=== PATIENT | female | born 1935 | race Caucasian/White ===

== ENCOUNTER → 2020-07-25 | Outpatient (CLI) | payer MEDICARE ==
--- NOTE | 2020-07-25 15:28 | RADIOLOGY REPORT (SQ) ---
EXAM DESCRIPTION: BARIUM SWALLOW ESOPHAGUS IMAGES COMPLETED DATE/TIME: 07/25/2020 10:44 am REASON FOR STUDY: R05 COUGH, CHOKING SENSATION R09.89 OTH SYMPTOMS AND SIGNS INVOLVING THE CIRC AND RESP SY COMPARISON: None. TECHNIQUE: Under fluoroscopic guidance, patient ingested effervescent granules followed by thick and thin barium. Fluoroscopic spot images and routine radiographic images acquired and stored on PACS. 12 MM BARIUM TABLET GIVEN: Barium tablet passed through the esophagus and into the stomach without de lay. LIMITATIONS: None. FLUOROSCOPY TIME: FLUORO TIME: 1.8 minutes 13 images saved to PACS. FINDINGS: NEUROMUSCULAR COORDINATION OF SWALLOW: Normal. No aspiration. ESOPHAGEAL MOTILITY: Normal peristalsis. No esophageal spasm. ESOPHAGEAL MUCOSA: Normal mucosa without masses or ulceration. GASTRO-ESOPHAGEAL JUNCTION: Hiatal hernia with marked gastroesophageal reflux. NON-GI TRACT STRUCTURES: No significant finding. OTHER: No other significant finding. IMPRESSION: HIATAL HERNIA WITH MARKED GASTROESOPHAGEAL REFLUX. RECOMMENDATION: None COMMENT: None Quality ID [id number]: Final reports for procedures using fluoroscopy that document radiation exposure samaria laura, or exposure time and number of fluorographic images (if radiation exposure indices are not avail able) TECHNICAL DOCUMENTATION: JOB ID: [id number] 2010 [employer]- All Rights Reserved Reading location - IP/workstation name: [email or web address] [id number]
== END ==
LOC: RAD 08:47
PROVIDERS: ATTEND Family Medicine
DX: R05 Cough (principal); R09.89 Other specified symptoms and signs involving the circulatory and respiratory systems
CPT/HCPCS: 74220

== ENCOUNTER 2020-09-13 11:11 | Emergency (ER) | payer MEDICARE ==
--- NOTE | 2020-09-13 11:48 | ER Document Report ---
ED Medical Screen (RME) - General Chief Complaint: Leg Pain Stated Complaint: FALL/LEG PAIN Time Seen by Provider: 09/13/20 11:42 Primary Care Provider: KIM CLARK MD [Primary Care Provider] - Follow up as needed Mode of Arrival: Wheelchair Information source: Patient Notes: 85-year-old female presents to ED for complaint of pain and swelling to the right thigh and knee. She states she fell August 16. She went to the doctor and they gave her some Tylenol and told her that the swelling would go away. She states the swelling has steadily increased. She states the pain is steadily increased and Tylenol is not doing her any good. She does have a considerable bruise and a considerable effusion to the right knee thigh. Brother was in the waiting room I have greeted and performed a rapid initial assessment of this patient. A comprehensive ED assessment and evaluation of the patient, analysis of test results and completion of medical decision making process will be conducted by an additional ED providers. - Related Data Allergies/Adverse Reactions: No Known Allergies Allergy (Verified 07/12/12 11:28) Past Medical History - Immunizations Hx Diphtheria, Pertussis, Tetanus Vaccination: Yes Physical Exam - Vital signs Vitals: Temp Pulse Resp BP Pulse Ox 98.3 F 88 18 153/81 H 100 09/13/20 11:16 09/13/20 11:16 09/13/20 11:16 09/13/20 11:16 09/13/20 11:16 Course - Vital Signs Vital signs: Temp Pulse Resp BP Pulse Ox 98.3 F 88 18 153/81 H 100 09/13/20 11:16 09/13/20 11:16 09/13/20 11:16 09/13/20 11:16 09/13/20 11:16 Doctor's Discharge - Discharge Referrals: KIM CLARK MD [Primary Care Provider] - Follow up as needed
--- NOTE | 2020-09-13 12:25 | RADIOLOGY REPORT (SQ) ---
EXAM DESCRIPTION: FEMUR RIGHT IMAGES COMPLETED DATE/TIME: 09/13/2020 12:15 pm REASON FOR STUDY: August 16 increasing swelling to the knee and thi COMPARISON: None. NUMBER OF VIEWS: Two views. TECHNIQUE: Two radiographic images acquired of the right femur to include hip and knee in at least o ne projection. LIMITATIONS: None. FINDINGS: MINERALIZATION: Normal. BONES: No acute fracture. No worrisome bone lesions. SOFT TISSUES: Soft tissue swelling laterally overlying the proximal femur and medially overlying the distal femur. Possibly soft tissue hematomas. Clinical correlation is needed. OTHER: No other significant finding. IMPRESSION: Soft tissue masses. This could represent neoplastic process possibly infectious or post traumatic change such as hematoma. Clinical correlation is needed. TECHNICAL DOCUMENTATION: JOB ID: [id number] 2010 [employer]- All Rights Reserved Reading location - IP/workstation name: [email or web address]
--- NOTE | 2020-09-13 12:27 | RADIOLOGY REPORT (SQ) ---
EXAM DESCRIPTION: KNEE RIGHT 4 VIEWS IMAGES COMPLETED DATE/TIME: 09/13/2020 12:15 pm REASON FOR STUDY: August 16 increasing swelling to the knee and thi COMPARISON: None. NUMBER OF VIEWS: Four views. TECHNIQUE: AP, lateral, and both oblique radiographic images acquired of the right knee. LIMITATIONS: None. FINDINGS: MINERALIZATION: Normal. BONES: No acute fracture or dislocation. No worrisome bone lesions. JOINT: No effusion. SOFT TISSUES: Extensive soft tissue swelling medially. Mild soft tissue swelling in the prepatellar region as well. OTHER: No other significant finding. IMPRESSION: Extensive soft tissue swelling. No fracture. TECHNICAL DOCUMENTATION: JOB ID: [id number] 2010 [employer]- All Rights Reserved Reading location - IP/workstation name: [email or web address]
[2020-09-13 12:36] LABS: ABSOLUTE EOSINOPHILS # (AUTO) 0.1 10^3/uL (0.0-0.6); ABSOLUTE LYMPHOCYTES (AUTO) 0.8 10^3/uL (0.5-4.7); ABSOLUTE MONOCYTES (AUTO) 0.5 10^3/uL (0.1-1.4); ABSOLUTE NEUT (AUTO) 3.8 10^3/uL (1.7-8.2); BASOPHILS % (AUTO) 0.6 % (0-2); EOSINOPHILS % (AUTO) 1.1 % (0-6); HEMATOCRIT 43.8 % (36.0-47.0); HEMOGLOBIN 14.6 g/dL (12.0-15.5); LYMPHOCYTES % (AUTO) 15.7 % (13-45); MEAN CORPUSCULAR HEMOGLOBIN 30.5 pg (27.0-33.4); MEAN CORPUSCULAR HGB CONC 33.4 g/dL (32.0-36.0); MEAN CORPUSCULAR VOLUME 91 fl (80-97); PLATELET COUNT 150 10^3/uL (150-450); RED BLOOD COUNT 4.81 10^6/uL (3.72-5.28); SEGMENTED NEUTROPHILS % (AUTO) 72.6 % (42-78); TOTAL CELLS COUNTED % (AUTO) 100 %; WHITE BLOOD COUNT 5.2 10^3/uL (4.0-10.5)
[2020-09-13 12:51] LABS: INTERNATIONAL RATION (INR) 0.91; PARTIAL THROMBOPLASTIN TIME 28.4 SEC (23.5-35.8); PROTHROMBIN TIME 12.5 SEC (11.4-15.4)
[2020-09-13 12:59] LABS: ALBUMIN 4.2 g/dL (3.5-5.0); ALKALINE PHOSPHATASE 81 U/L (38-126); ANION GAP 8 (5-19); ASPARTATE AMINO TRANSFERASE 25 U/L (14-36); BILIRUBIN,TOTAL 0.8 mg/dL (0.2-1.3); BLOOD UREA NITROGEN 11 mg/dL (7-20); CALCIUM 9.7 mg/dL (8.4-10.2); CARBON DIOXIDE 32 mmol/L (22-30); CHLORIDE 101 mmol/L (98-107); CREATINE KINASE 31 U/L (30-135); GLUCOSE 110 mg/dL (75-110); POTASSIUM 3.8 mmol/L (3.6-5.0); TOTAL PROTEIN 6.8 g/dL (6.3-8.2)
--- NOTE | 2020-09-13 15:51 | RADIOLOGY REPORT (SQ) ---
EXAM DESCRIPTION: VENOUS UNILATERAL LOWER IMAGES COMPLETED DATE/TIME: 09/13/2020 3:41 pm REASON FOR STUDY: Fell August 16 increasing swelling to the leg COMPARISON: None. TECHNIQUE: Dynamic and static golden scale and color images acquired of the right leg venous system. S elected spectral images acquired with additional compression and augmentation maneuvers. The contrala teral common femoral vein and saphenofemoral junction were also imaged. Images stored on PACS. LIMITATIONS: None. FINDINGS: COMMON FEMORAL: Normal phasicity, compression and augmentation. No visualized echogenic ma terial on golden scale. No defects on color images. FEMORAL: Normal compression and augmentation. No visualized echogenic material on golden scale. No defe cts on color images. POPLITEAL: Normal compression, augmentation. No visualized echogenic material on golden scale. No defec ts on color images. CALF VESSELS: Normal compression, augmentation. No visualized echogenic material on golden scale. No de fects on color images. GSV and SSV: Normal compression, augmentation. No visualized echogenic material on golden scale. No def ects on color images. ANY DEEP VENOUS INSUFFICIENCY: Not evaluated. ANY EVIDENCE OF POPLITEAL CYST: No. OTHER: Largest complex cystic structure along the distal medial thigh is noted most consistent with h ematoma. CONTRALATERAL COMMON FEMORAL VEIN AND SAPHENOFEMORAL JUNCTION: Normal phasicity, compression and augmentation. No visualized echogenic material on golden scale. No de fects on color images. IMPRESSION: No evidence of DVT or SVT in the right leg. Complex fluid collection extending along the medial aspect of the distal thigh and above the knee mos t likely representing hematoma. TECHNICAL DOCUMENTATION: JOB ID: [id number] 2010 [employer]- All Rights Reserved Reading location - IP/workstation name: [email or web address]
[2020-09-13 16:16] VITALS: BP 149/80
--- NOTE | 2020-09-13 16:25 | ER Document Report ---
ED Extremity Problem, Lower - General Chief Complaint: Leg Injury Stated Complaint: FALL/LEG PAIN Time Seen by Provider: 09/13/20 11:42 Primary Care Provider: MILVIA RUIZ JR, DO [ACTIVE PROVISIONAL STAFF] - Follow up as needed KIM CLARK MD [Primary Care Provider] - 09/16/20 Mode of Arrival: Wheelchair Information source: Patient, Relative Notes: 85-year-old female presents to ED for complaint of pain and swelling to the right thigh and knee. She states she fell August 16. She went to the doctor and they gave her some Tylenol and told her that the swelling would go away. She states the swelling has steadily increased. She states the pain is steadily increased and Tylenol is not doing her any good. She does have a considerable bruise and a considerable effusion to the right knee thigh. Brother was in the waiting room - [facility] Patient complains to provider of: Injury - 08/16/2020, Pain, Swelling Location: Knee, Thigh Occurred: Other - Last month Where: Home, Indoors Onset/Duration: Better Quality of pain: Achy Severity: Moderate Pain Level: 2 Context: Fell - fell months ago Recent injury: Yes - A month ago Associated symptoms: Painful ambulation Exacerbated by: Hanging down, Movement, Walking Relieved by: Elevation, Ice, Rest - Related Data Allergies/Adverse Reactions: No Known Allergies Allergy (Verified 07/12/12 11:28) Past Medical History - General Information source: Patient - Social History Smoking Status: Never Smoker Chew tobacco use (# tins/day): No Frequency of alcohol use: None Drug Abuse: None Lives with: Alone Family History: Reviewed & Not Pertinent Patient has homicidal ideation: No - Past Medical History Cardiac Medical History: Reports: Hx Hypercholesterolemia, Hx Hypertension Pulmonary Medical History: Reports: None EENT Medical History: Reports: None Neurological Medical History: Reports: None Endocrine Medical History: Reports: Hx Diabetes Mellitus Type 2 Renal/ Medical History: Reports: Hx Renal Insufficiency Malignancy Medical History: Reports: None GI Medical History: Reports: None Musculoskeletal Medical History: Reports Hx Arthritis, Reports Hx Musculoskeletal Trauma Skin Medical History: Reports None Psychiatric Medical History: Reports: None Traumatic Medical History: Reports: None Infectious Medical History: Reports: None - Immunizations Hx Diphtheria, Pertussis, Tetanus Vaccination: Yes Review of Systems - Review of Systems Musculoskeletal: Muscle pain, Muscle stiffness, Other - Pain and swelling to right leg Skin: Other - Knee effusion large bruises the right leg and knee Hematologic/Lymphatic: Easy bruising Neurological/Psychological: No symptoms reported -: Yes All other systems reviewed and negative Physical Exam - Vital signs Vitals: Temp Pulse Resp BP Pulse Ox 98.3 F 88 18 153/81 H 100 09/13/20 11:16 09/13/20 11:16 09/13/20 11:16 09/13/20 11:16 09/13/20 11:16 - Cardiovascular Rhythm: Regular Heart sounds: Normal auscultation Normal capillary refill: Yes - Extremities Hip: Tender, Ecchymosis Thigh: Tender - Right, Ecchymosis - Right, Other - Needs cane to walk Knee: Tender, Ecchymosis, Joint effusion, Pain with ROM, Patellar tendon intact, Tender joint line - Skin Skin Color: Ecchymosis Location of irregularity: Extremities Irregularity with: Swelling, Tenderness Course - Re-evaluation Re-evalutation: 09/13/20 16:25 Discussed results of x-rays, Doppler, labs with patient and brother. Written report of all of these given to patient at discharge. Patient has been seen by her primary care 3 times since this fall. She has another appointment with him scheduled coming up. I have instructed patient and brother they may want to call the primary care doctor again on Wednesday and let them know that she is still having trouble walking and if they feel is not safe for her for her at home you may talk to him about assisted living until she is more full to walk. I did consult and reviewed the history and physical as well as results her. She agreed there was no reason to admit the patient patient should be discharged home and follow-up with the primary care. - Vital Signs Vital signs: Temp Pulse Resp BP Pulse Ox 97.8 F 93 14 149/80 H 97 09/13/20 16:16 09/13/20 16:16 09/13/20 16:16 09/13/20 16:16 09/13/20 16:16 - Laboratory Result Diagrams: 09/13/20 12:16 09/13/20 12:16 Laboratory results interpreted by me: 09/13/20 12:16 Carbon Dioxide 32 H - Diagnostic Test Radiology reviewed: Image reviewed, Reports reviewed Discharge - Discharge Clinical Impression: right leg injury oct , Right knee and thigh contusion, Fall 08/16/20 Condition: Stable Disposition: HOME, SELF-CARE Instructions: Knee Effusion ([facility]) Additional Instructions: CONTUSION: Your injury has resulted in a contusion -- a crushing of the deep tissues. No injury to important structures was detected during the physician's exam. Contusions vary in the amount of pain they cause, and in the length of time required for healing. Typically, the area will become bruised, and will remain painful to touch for two or three weeks. However, most patients are back to working and playing within a few days. After the initial period of rest and cold-packs, your symptoms (together with the doctor's recommendations) will determine how rapidly you can get back to full activity. Usually this means "do what feels okay, but don't do things that hurt." If re-examination was recommended, it's important to follow up as instructed. Call the doctor or return any time if pain increases, if swelling becomes severe, if you develop numbness or weakness in an injured extremity, or if any other alarming symptoms occur. USE OF TYLENOL (ACETAMINOPHEN): Acetaminophen may be taken for pain relief or fever control. It's much safer than aspirin, offering a wider range of "safe" dosages. It is safe during . Some brand names are Tylenol, Panadol, Datril, Anacin 3, Tempra, and Liquiprin. Acetaminophen can be repeated every four hours. The following are maximum recommended dosages: WEIGHT Dose Drops Elixir Chewable(80mg) (LBS.) drprs=droppers tsp=teaspoon 6 40 mg 0.4 ml (1/2) 6-11 80 mg 0.8 ml (full) tsp 1 tab 12-16 120 mg 1 1/2 drprs 3/4 tsp 1 1/2 tabs 17-23 160 mg 2 drprs 1 tsp 2 tabs 24-30 240 mg 3 drprs 1 1/2 tsp 3 tabs 30-35 320 mg 2 tsp 4 tabs 36-41 360 mg 2 1/4 tsp 4 1/2 tabs 42-47 400 mg 2 1/2 tsp 5 tabs 48-53 480 mg 3 tsp 6 tabs 54-59 520 mg 3 1/4 tsp 6 1/2 tabs 60-64 560 mg 3 1/2 tsp 7 tabs 65-70 600 mg 3 3/4 tsp 7 1/2 tabs 71-76 640 mg 4 tsp 8 tabs 77-82 720 mg 4 1/2 tsp 9 tabs 83-88 800 mg 5 tsp 10 tabs >89 pounds or adults 650 mg to 900 mg Acetaminophen can be repeated every four hours. Maximum dose not to exceed 4000 mg a day. These maximum recommended dosages are slightly higher than the dosages written on the product container, but these dosages are very safe and below the toxic dosage for acetaminophen. Ice & Elevation Apply ice packs frequently against the painful area. Many different schedules are recommended, such as "20 minutes on, 20 minutes off" or "one hour ice, two hours rest." If you need to work, you may need to go longer between ice treatments. You should plan to have the area ice packed AT LEAST one-fourth of the time. The ice should be applied over the wrap, tape, or splint, or over a layer of cloth -- not directly against the skin. Some ice bags have a built-in cloth and can be put directly on the skin. Your injured part should be elevated as much as possible over the next 48 hours. Try to keep the injury above the level of the heart. Avoid use of the injured area. Elevation and rest will decrease the swelling. FOLLOW-UP CARE: If you have been referred to a physician for follow-up care, call the physicians office for an appointment as you were instructed or within the next two days. If you experience worsening or a significant change in your symptoms, notify the physician immediately or return to the Emergency Department at any time for re-evaluation. Forms: Elevated Blood Pressure Referrals: KIM CLARK MD [Primary Care Provider] - 09/16/20 MILVIA RUIZ JR, DO [ACTIVE PROVISIONAL STAFF] - Follow up as needed
== END 2020-09-13 16:27 | disposition home or self-care (01) ==
LOC: ER 11:11
DX: S80.01XA Contusion of right knee, initial encounter (principal); S70.11XA Contusion of right thigh, initial encounter; M25.461 Effusion, right knee; W19.XXXA Unspecified fall, initial encounter; Y92.009 Unspecified place in unspecified non-institutional (private) residence as the place of occurrence of the external cause; E11.9 Type 2 diabetes mellitus without complications; I10 Essential (primary) hypertension
CPT/HCPCS: 36415; 80053; 82550; 85025; 85610; 85730; 93971; 99285

== ENCOUNTER 2020-09-21 19:11 | Emergency (ER) | payer MEDICARE, OTHER ==
--- NOTE | 2020-09-21 20:07 | ER Document Report ---
ED Extremity Problem, Lower - General Chief Complaint: Knee Pain Stated Complaint: RIGHT LEG PAIN Time Seen by Provider: 09/21/20 19:57 Primary Care Provider: KIM CLARK MD [Primary Care Provider] - Follow up as needed - HPI Notes: Patient is an 85 y/o female who was brought in by EMS for right knee swelling. She injured her knee on 08/16/20 after a fall and was seen in the ED one week ago. XRs were done and she had no fracture. She returned today as she continues to have swelling. She denies any new injury or worsening pain. She has an appointment with ortho in three days. She has been taking tylenol for pain but only took one dose today. She denies pain and swelling to her right calf. - Related Data Allergies/Adverse Reactions: No Known Allergies Allergy (Verified 07/12/12 11:28) Home Medications: tylenol, bp med, chol pill Past Medical History - General Information source: Patient - Social History Smoking Status: Never Smoker Family History: Reviewed & Not Pertinent - Past Medical History Cardiac Medical History: Reports: Hx Hypercholesterolemia, Hx Hypertension Endocrine Medical History: Reports: Hx Diabetes Mellitus Type 2 Renal/ Medical History: Reports: Hx Renal Insufficiency Musculoskeletal Medical History: Reports Hx Arthritis, Reports Hx Muscu loskeletal Trauma - Immunizations Hx Diphtheria, Pertussis, Tetanus Vaccination: Yes Review of Systems - Review of Systems Constitutional: No symptoms reported EENT: No symptoms reported Cardiovascular: No symptoms reported Respiratory: No symptoms reported Gastrointestinal: No symptoms reported Genitourinary: No symptoms reported Female Genitourinary: No symptoms reported Musculoskeletal: See HPI Skin: No symptoms reported Hematologic/Lymphatic: No symptoms reported Neurological/Psychological: No symptoms reported Physical Exam - Vital signs Vitals: Temp Pulse Resp BP Pulse Ox 98.2 F 106 H 16 133/79 H 95 09/21/20 19:28 09/21/20 19:28 09/21/20 19:28 09/21/20 19:28 09/21/20 19:28 - Notes Notes: PHYSICAL EXAMINATION: VITALS: Vitals reviewed and within normal limits. GENERAL: Well-appearing, well-nourished and in no acute distress. HEAD: Atraumatic, normocephalic. LUNGS: Breath sounds clear to auscultation bilaterally and equal. No wheezes rales or rhonchi. HEART: Regular rate and rhythm without murmurs. ABDOMEN: Soft, nontender, normoactive bowel sounds. No guarding, no rebound. No masses appreciated. EXTREMITIES: Significant effusion to the right medial knee. No overlying erythema or tenderness. Full ROM. No swelling or tenderness to the right calf. 2+ DP and PT pulse on the right. PSYCH: Normal mood, normal affect. SKIN: Warm, Dry, normal turgor, no rashes or lesions noted. Course - Re-evaluation Re-evalutation: Patient is an 85-year-old female who presents for right knee swelling. Patient injured her knee on 08/16/2020 and was seen in the ED a week ago for this injury. Imaging was done which showed soft tissue swelling but no fracture. Patient was referred to orthopedics and has an appointment in 3 days. However, she returned to the ED for continued swelling of her right knee with no new injury. Patient is mildly tachycardic with a heart rate of 106 but vitals are otherwise normal. On exam, there is a significant effusion to the right knee on the medial side, however, there is no overlying tenderness or redness. Ultimately I decided to order a Doppler ultrasound of her right lower extremity as she has been more sedentary recently, even though here is no swelling or tenderness to her right calf. 09/21/20 22:00 Patient has been waiting in the emergency department for over two hours and is ready to leave. Doppler US was never performed and patient does not want to wait for it to be performed. Lengthy discussion given the risks and concerning symptoms of a DVT and PE and then need to return immediately to the emergency department should these arise. Patient instructed to follow up with orthopedics at her scheduled appointment. Return precautions and follow up instructions given. Patient demonstrates decision-making capacity. Patient understands and is in agreement with the plan. Patient will be discharged home. Brother is here to give here a ride. - Vital Signs Vital signs: Temp Pulse Resp BP Pulse Ox 97.9 F 99 15 133/77 H 99 09/21/20 22:13 09/21/20 22:13 09/21/20 22:13 09/21/20 22:13 09/21/20 22:13 Discharge - Discharge Clinical Impression: Effusion, left knee Left knee pain Qualifiers: Chronicity: acute Qualified Code(s): M25.562 - Pain in left knee Condition: Stable Disposition: HOME, SELF-CARE Instructions: Knee Effusion ([facility]) Referrals: KIM CLARK MD [Primary Care Provider] - Follow up as needed
[2020-09-21] MEDS ORDERED: ACETAMINOPHEN 325 MG TABLET PO ONE (21:58)
[2020-09-21 22:15] VITALS: BP 133/77
== END 2020-09-21 22:15 | disposition home or self-care (01) ==
LOC: ER 19:11
DX: M25.469 Effusion, unspecified knee (principal); M25.562 Pain in left knee; W19.XXXA Unspecified fall, initial encounter; E11.9 Type 2 diabetes mellitus without complications; E78.00 Pure hypercholesterolemia, unspecified; I10 Essential (primary) hypertension; Z79.899 Other long term (current) drug therapy; Z53.29 Procedure and treatment not carried out because of patient's decision for other reasons
CPT/HCPCS: 99283; A9270

== ENCOUNTER 2020-09-30 09:09 | Observation (INO) | payer MEDICARE ==
[~2020-09-30 09:09] MED LIST: FENTANYL CITRATE INJ/PF 100 MCG/2 ML AMPUL ONE; MIDAZOLAM 2 MG/2 ML INJ ONE; ONDANSETRON HCL INJ/PF 4 MG/2 ML SDV ONE; PROPOFOL INJ 200 MG/20 ML VIAL IV ONE
[2020-09-30 13:00] LABS: HEMATOCRIT 42.1 % (36.0-47.0); HEMOGLOBIN 13.8 g/dL (12.0-15.5); MEAN CORPUSCULAR HGB CONC 32.9 g/dL (32.0-36.0); MEAN CORPUSCULAR VOLUME 91 fl (80-97); PLATELET COUNT 131 10^3/uL (150-450); RED CELL DISTRIBUTION WIDTH 14.2 % (11.5-14.0); WHITE BLOOD COUNT 5.7 10^3/uL (4.0-10.5)
[2020-09-30 13:30] LABS: BLOOD UREA NITROGEN 12 mg/dL (7-20); CALCIUM 9.4 mg/dL (8.4-10.2); CHLORIDE 105 mmol/L (98-107); GLUCOSE 95 mg/dL (75-110)
[2020-09-30 13:36] LABS: CARBON DIOXIDE 31 mmol/L (22-30)
[2020-09-30 13:42] LABS: ANION GAP 3 (5-19)
--- NOTE | 2020-09-30 14:09 | EKG REPORT ---
SEVERITY:- NORMAL ECG - SINUS RHYTHM : Confirmed by: Ta Lujan MD 30-Sep-2020 14:09:09
[2020-09-30] MEDS ORDERED: CEFAZOLIN INJ 1 GM VIAL ONE (16:19)
[2020-09-30] MEDS ORDERED: PROMETHAZINE HCL INJ 25 MG/1 ML VIAL IV PRN ×2 (16:24)
[2020-09-30] MEDS ORDERED: DIPHENHYDRAMINE HCL 50 MG/ML VIAL IV PRN (16:24)
[2020-09-30] MEDS ORDERED: FENTANYL CITRATE INJ/PF 100 MCG/2 ML AMPUL IV PRN ×3 (16:24)
[2020-09-30] MEDS ORDERED: MEPERIDINE HCL/PF INJ 25 MG/1 ML DISP.SYRIN IV PRN (16:24)
[2020-09-30] MEDS ORDERED: MORPHINE SULFATE 10 MG/ML INJ IV PRN ×3 (16:24→18:13)
[2020-09-30] MEDS ORDERED: ONDANSETRON HCL INJ/PF 4 MG/2 ML SDV IV PRN (16:24)
[2020-09-30] MEDS ORDERED: TRAMADOL HCL 50 MG TABLET PO PRN (18:13)
[2020-09-30] MEDS ORDERED: DOCUSATE SODIUM 100 MG CAPSULE PO PRN (18:13)
[2020-09-30] MEDS ORDERED: ONDANSETRON 4 MG TAB.RAPDIS PO PRN (18:13)
[2020-09-30] MEDS ORDERED: PANTOPRAZOLE SODIUM 20 MG TABLET.DR PO ONE (18:13)
[2020-09-30] MEDS ORDERED: OXYCODONE HCL IR 5 MG TABLET PO PRN ×4 (18:13)
[2020-09-30] MEDS ORDERED: NORMAL SALINE 1000 ML 1,000 ML IV ONE (18:13)
[2020-09-30] MEDS ORDERED: ZOLPIDEM TARTRATE 5 MG TABLET PO PRN (18:13)
[2020-09-30] MEDS ORDERED: DEXAMETHASONE SOD PHOS INJ 10 MG/1 ML VIAL IV ONE (18:13)
[2020-09-30] MEDS ORDERED: DIPHENHYDRAMINE HCL 25 MG CAPSULE PO PRN (18:13)
[2020-09-30] MEDS ORDERED: TRANEXAMIC ACID INJ/PF 1,000 MG/10 ML SDV IV ONE (18:13)
--- NOTE | 2020-09-30 18:13 | Operative Report ---
Operative Report DATE OF SURGERY: 09/30/20 PREOPERATIVE DIAGNOSIS: Right lower extremity medial distal thigh Flower Arturo e, lateral proximal thigh Flower Lavellee POSTOPERATIVE DIAGNOSIS: Right lower extremity medial distal thigh Flower Lavellee, lateral proximal thigh Flower Lavellee OPERATION: Flower-Lavellee incision, debridement, imbrication and application of wound VAC for 2 separate lesions, distal medial right thigh and proximal lateral thigh SURGEON: MILVIA RUIZ JR ANESTHESIA: GA COMPLICATIONS: None ESTIMATED BLOOD LOSS: 50 cc PROCEDURE: Patient was brought operating suite laid supine on the operating table. They are placed under general anesthesia. 2 g Ancef was given preoperatively. The right lower extremities then prepped and draped standard sterile fashion. Appropriate timeout was performed followed by marking out the lesions. One was near the knee on the medial aspect and the other was lateral to the greater tr ochanter. I dressed the medial knee wound first. I marked out the extent of the lesion and then made a incision in the middle of the lesion. Immediately we encountered serosanguinous dusky appearing fluid that we evacuated. I took cultures. After this we copiously irrigated with dilute Betadine solution and a Pulsavac as well as scraped the wound to encourage some inflammation and bleeding followed by irrigation again. I then proceeded to tack down the dermal and adipose layer to the underlying fascia with a 2 oh Quill in running fashion. I started the periphery and move my way central. After obtaining adequate imbrication of the tissue, I inserted a white wound VAC sponge in the portion of the wound that remained open. The incision was closed with 3-0 nylon leaving an approximate area of 2 x 1 cm open where the white sponge was located. After this a wound VAC was placed over the incision and good suction was obtained. I then addressed the proximal thigh wound in the same fashion above. I made an incision over the central aspect of the wound followed by evacuation of the fluid which was also cultured. I scraped the periphery of the wound and then copiously irrigated with dilute Betadine solution and Pulsavac. After this we imbricated the tissue planes together with a running 2 oh Quill suture. Upon tending appropriate imbrication and closure of the space, a white wound VAC sponge was placed in the proximal wound. The remaining incision was closed with horizontal mattress 3-0 nylon sutures. Again this left an approximate 2 x 1 cm open wound where the white sponge was located. A sterile wound VAC was then applied over the incision. The wound VAC maintained good suction through a Y adapter. The patient was then awakened anesthesia transferred the PACU in stable condition.
[2020-09-30] MEDS ORDERED: CEFAZOLIN 2 GM/D5W RTU 2 GM/50 ML RTUPB IV SCH (22:00)
[2020-09-30] MEDS: CEFAZOLIN SODIUM 2 GM in DEXTROSE 5%-WATER 100 ML IV SCH (22:02)
[2020-09-30] MEDS: METOCLOPRAMIDE HCL 10 MG TABLET PO SCH (22:03)
[2020-09-30] MEDS: ATORVASTATIN CALCIUM 10 MG TABLET PO SCH (22:03)
[2020-09-30] MEDS: GABAPENTIN 100 MG CAPSULE PO SCH (22:03)
[2020-09-30] MEDS: KETOROLAC TROMETHAMINE INJ/PF 30 MG/1 ML SDV IV SCH (22:03)
[2020-10-01] MEDS: ACETAMINOPHEN 325 MG TABLET PO SCH ×4 (00:31→18:01)
[2020-10-01] MEDS: KETOROLAC TROMETHAMINE INJ/PF 30 MG/1 ML SDV IV SCH ×3 (05:14→22:31)
[2020-10-01] MEDS: CEFAZOLIN SODIUM 2 GM in DEXTROSE 5%-WATER 100 ML IV SCH (05:15)
--- NOTE | 2020-10-01 07:18 | Discharge Summary ---
Discharge Summary (SDC) - Discharge Final Diagnosis: Mundo Shin lesion of the right distal medial thigh, separate lesion at the right proximal lateral thigh Date of Surgery: 09/30/20 Discharge Date: 10/01/20 Condition: Stable Treatment or Instructions: Weight bear as tolerated Keep dressings intact, you will need to follow with wound care or have home care set up for wound vac changes every 3 days Follow in my office in approximately 10 days. Schedule your appointments on the same day as your wound care. Come in before your wound appointment so that we can evaluate your wound, and then you can have it replaced on that same day after leaving my office. Referrals: KIM CLARK MD [Primary Care Provider] - Discharge Diet: As Tolerated Respiratory Treatments at Home: Deep Breathing/Coughing Discharge Activity: Activity As Tolerated, Keep Legs Elevated, No tub bath, Walk Frequently Report the Following to Your Physician Immediately: Shortness of Breath, Fever over 101 Degrees
--- NOTE | 2020-10-01 08:09 | PDOC PROGRESS REPORT ---
Subjective Date:: 10/01/20 Subjective:: Patient seen and examined this morning. No acute events overnight. Doing well without new symptoms. Reports no good nights rest. Pain control. Reason For Visit: RIGHT LOWER EXTREMITY HANLEY-LAVELLEE LESION Physical Exam Vital Signs: Temp Pulse Resp BP Pulse Ox 97.9 F 77 12 107/57 L 100 10/01/20 04:16 10/01/20 04:16 10/01/20 04:16 10/01/20 04:16 10/01/20 04:16 Intake & Output 09/30/20 10/01/20 10/02/20 06:59 06:59 06:59 Intake Total 900 Output Total 30 Balance 870 Weight 63.4 kg Physical Exam: No acute distress, alert and orient x3 Right lower extremity -Pulses 2+ distally -Compartments soft -Sensation grossly intact to L3-4-5 S1 -Motor grossly intact to EHL TA gastroc and quad -Wounds clean dry and intact, wound vacs in place with good seal, approximately 10 cc out of wound vacs total. Results Laboratory Results: 09/30/20 12:50 09/30/20 12:50 09/30/20 09/30/20 12:50 12:50 WBC 5.7 RBC 4.60 Hgb 13.8 Hct 42.1 MCV 91 MCH 30.0 MCHC 32.9 RDW 14.2 H Plt Count 131 L Sodium 139.0 Potassium 4.0 Chloride 105 Carbon Dioxide 31 H Anion Gap 3 L BUN 12 Creatinine 0.54 Est GFR ( Amer) > 60 Glucose 95 Calcium 9.4 Assessment & Plan - Diagnosis (1) Degloving injury Is this a current diagnosis for this admission?: Yes Plan: -Patient has 2 separate Hanley lesions of the right lower extremity. We will need ongoing wound VAC management to maintain evacuation of the lesions until they heal Patient will likely be stable for discharge today pending case management evaluation and home needs Pain medication has been prescribed to the patient's pharmacy from the office Follow my office in approximately 10 days for wound check. Weightbearing as tolerated. - Time Time Spent with patient: Less than 15 minutes
[2020-10-01] MEDS: POLYETHYLENE GLYCOL 3350 POWDER 17 GM/1 PACKET PO SCH (09:56)
[2020-10-01] MEDS: METOCLOPRAMIDE HCL 10 MG TABLET PO SCH ×4 (09:57→22:32)
[2020-10-01] MEDS: CELECOXIB 200 MG CAPSULE PO SCH (09:57)
[2020-10-01] MEDS: GABAPENTIN 100 MG CAPSULE PO SCH ×2 (09:57→22:32)
[2020-10-01] MEDS: ENALAPRIL MALEATE 10 MG TABLET PO SCH (09:57)
[2020-10-01] MEDS: ASPIRIN 325 MG TABLET PO SCH (09:57)
[2020-10-01] MEDS ORDERED: (PENDING PHARMACY ID) (Pravastatin Sodium [Pravastatin Sodium] 40 MG Tablet) PO SCH (10:00)
[2020-10-01] MEDS: ATORVASTATIN CALCIUM 10 MG TABLET PO SCH (22:32)
[2020-10-02] MEDS: ACETAMINOPHEN 325 MG TABLET PO SCH ×4 (06:16→17:53)
--- NOTE | 2020-10-02 07:50 | PDOC PROGRESS REPORT ---
Subjective Date:: 10/02/20 Subjective:: Patient doing well this morning. Was sleeping upon initiation of exam but easil y awakened. Reports adequate pain control. Reason For Visit: RIGHT LOWER EXTREMITY HANLEY-LAVELLEE LESION Physical Exam Vital Signs: Temp Pulse Resp BP Pulse Ox 97.9 F 80 19 125/75 95 10/02/20 04:00 10/02/20 04:00 10/02/20 04:00 10/02/20 04:00 10/02/20 04:00 Intake & Output 10/01/20 10/02/20 10/03/20 06:59 06:59 06:59 Intake Total 900 680 Output Total 30 402 Balance 870 278 Weight 63.4 kg Physical Exam: No acute distress, alert and orient x3 Right lower extremity -Pulses 2+ distally -Compartments soft -Sensation grossly intact to L3-4-5 S1 -Motor grossly intact to EHL TA gastroc and quad About 15 cc of output in wound VAC. Dressings intact, appropriate suction, VAC output appears static. -No appreciable reaccumulation of fluid within the wounds, no fluctuance. Results Laboratory Results: 09/30/20 12:50 09/30/20 12:50 Assessment & Plan - Diagnosis (1) Degloving injury Is this a current diagnosis for this admission?: Yes Plan: Patient is safe for discharge home versus rehab today pending wound VAC ap proval with insurance We will discussed the case with case management Completed postoperative antibiotics Aspirin daily for DVT prophylaxis Will need twice weekly wound VAC changes Weightbearing as tolerated. Cultures negative currently. We will continue to monitor - Time Time Spent with patient: Less than 15 minutes
[2020-10-02] MEDS ORDERED: INFLUENZA QUAD (6MOS+) 2020-21 VAC 0.5 ML SYR IM ONE (08:00)
[2020-10-02] MEDS: CELECOXIB 200 MG CAPSULE PO SCH (09:20)
[2020-10-02] MEDS: ENALAPRIL MALEATE 10 MG TABLET PO SCH (09:20)
[2020-10-02] MEDS: POLYETHYLENE GLYCOL 3350 POWDER 17 GM/1 PACKET PO SCH (09:21)
[2020-10-02] MEDS: ASPIRIN 325 MG TABLET PO SCH (09:21)
[2020-10-02] MEDS: GABAPENTIN 100 MG CAPSULE PO SCH ×2 (09:21→21:34)
[2020-10-02] MEDS: METOCLOPRAMIDE HCL 10 MG TABLET PO SCH ×4 (09:21→21:34)
[2020-10-02] MEDS: ATORVASTATIN CALCIUM 10 MG TABLET PO SCH (21:34)
[2020-10-03] MEDS: ACETAMINOPHEN 325 MG TABLET PO SCH ×5 (00:29→23:11)
[2020-10-03] MEDS: ENALAPRIL MALEATE 10 MG TABLET PO SCH (09:33)
[2020-10-03] MEDS: METOCLOPRAMIDE HCL 10 MG TABLET PO SCH ×4 (09:33→21:10)
[2020-10-03] MEDS: POLYETHYLENE GLYCOL 3350 POWDER 17 GM/1 PACKET PO SCH (09:33)
[2020-10-03] MEDS: CELECOXIB 200 MG CAPSULE PO SCH (09:33)
[2020-10-03] MEDS: GABAPENTIN 100 MG CAPSULE PO SCH ×2 (09:34→21:10)
[2020-10-03] MEDS: ASPIRIN 325 MG TABLET PO SCH (09:34)
--- NOTE | 2020-10-03 12:15 | PDOC PROGRESS REPORT ---
Subjective Date:: 10/03/20 Subjective:: Patient doing well. No acute events. Feels well this AM with minimal pain. Reason For Visit: RIGHT LOWER EXTREMITY HANLEY-LAVELLEE LESION Physical Exam Vital Signs: Temp Pulse Resp BP Pulse Ox 98.4 F 95 22 H 154/92 H 94 10/03/20 08:00 10/03/20 08:00 10/03/20 08:00 10/03/20 08:00 10/03/20 08:00 Intake & Output 10/02/20 10/03/20 10/04/20 06:59 06:59 06:59 Intake Total 680 340 Output Total 402 1 Balance 278 339 Physical Exam: No acute distress, alert and orient x3 Right lower extremity -Pulses 2+ distally -Compartments soft -Sensation grossly intact to L3-4-5 S1 -Motor grossly intact to EHL TA gastroc and quad About 15 cc of output in wound VAC. Dressings intact, appropriate suction, VAC output appears static. -No appreciable reaccumulation of fluid within the wounds, no fluctuance. Results Laboratory Results: 09/30/20 12:50 09/30/20 12:50 09/30/20 16:21 Knee - Abscess Gram Stain - Final 09/30/20 17:11 Thigh - Right Gram Stain - Final Assessment & Plan - Diagnosis (1) Degloving injury Is this a current diagnosis for this admission?: Yes Plan: Patient is safe for discharge home versus rehab today pending wound VAC approval with insurance. At this point we are awaiting for her discharge due to insurance authorization for rehab as well as a reexamination by physical the rapy. Will place discharge order when these needs are met. Case discussed with case management in order to encourage timely discharge. Completed postoperative antibiotics Aspirin daily for DVT prophylaxis Will need twice weekly wound VAC changes at the wound care center. Weightbearing as tolerated. Cultures negative currentlyx3 days. We will continue to monitor - Time Time Spent with patient: Less than 15 minutes
[2020-10-03] MEDS: ATORVASTATIN CALCIUM 10 MG TABLET PO SCH (21:10)
[2020-10-04] MEDS: ACETAMINOPHEN 325 MG TABLET PO SCH ×3 (05:03→17:37)
--- NOTE | 2020-10-04 10:21 | PDOC PROGRESS REPORT ---
Subjective Date:: 10/04/20 Subjective:: Patient seen and examined this morning no acute events overnight. Doing well th is morning. No complaints. Has been able to ambulate with physical therapy. Nursing staff reports that she has been of low motivation and has been peeing in her diaper rather than getting up to use the bathroom. Reason For Visit: RIGHT LOWER EXTREMITY HANLEY-LAVELLEE LESION Physical Exam Vital Signs: Temp Pulse Resp BP Pulse Ox 97.9 F 91 18 153/84 H 94 10/04/20 07:45 10/04/20 07:45 10/04/20 07:45 10/04/20 07:45 10/04/20 07:45 Intake & Output 10/03/20 10/04/20 10/05/20 06:59 06:59 06:59 Intake Total 340 440 Output Total 1 600 Balance 339 -160 Physical Exam: No acute distress, O x3 Right lower extremity -Pulses 2+ distally -Compartments soft -Sensation grossly intact to L3-4-5 S1 -Motor grossly intact to EHL TA gastroc and quad -Minimal output in wound VAC. Dressings changed yesterday. No signs of reaccumulation or infection at the wound sites. Results Laboratory Results: 09/30/20 12:50 09/30/20 12:50 09/30/20 16:21 Knee - Abscess Gram Stain - Final 09/30/20 17:11 Thigh - Right Gram Stain - Final Assessment & Plan - Diagnosis (1) Degloving injury Is this a current diagnosis for this admission?: Yes Plan: Patient doing well at this point. Stable for discharge pending insurance authorization. She will need twice weekly dressing changes and wound VAC changes to allow for bleeding from the Follow my office 10 days postop Encourage out of bed, ambulate as tolerated, self motivated personal hygiene including using the restroom on her own. - Time Time Spent with patient: Less than 15 minutes
[2020-10-04] MEDS: METOCLOPRAMIDE HCL 10 MG TABLET PO SCH ×4 (10:25→21:39)
[2020-10-04] MEDS: ASPIRIN 325 MG TABLET PO SCH (10:25)
[2020-10-04] MEDS: CELECOXIB 200 MG CAPSULE PO SCH (10:25)
[2020-10-04] MEDS: POLYETHYLENE GLYCOL 3350 POWDER 17 GM/1 PACKET PO SCH (10:25)
[2020-10-04] MEDS: GABAPENTIN 100 MG CAPSULE PO SCH ×2 (10:25→21:39)
[2020-10-04] MEDS: ENALAPRIL MALEATE 10 MG TABLET PO SCH (10:25)
--- NOTE | 2020-10-04 14:52 | PDOC DISCHARGE SUMMARY ---
Impression - Admit/DC Date/PCP Admission Date/Primary Care Provider: 09/30/20 18:13 KIM CLARK MD Discharge Date: 10/04/20 - Discharge Diagnosis (1) Degloving injury Is this a current diagnosis for this admission?: Yes - Assessment Summary: Patient sustained a degloving injury approximately 5 weeks ago that resulted in seromas on her hip and inner thigh that did not resolve. Due to ongoing pressure and pain, the patient sought further management. I saw her in the office and after discussing risks benefits with her and her brother she provided informed operative consent for incision and drainage of both [place] lesions with wound VAC application. Patient underwent surgery on 09/30/2020 and tolerated procedure well and was transferred to the PACU in stable condition. She was then transferred to the floor for postoperative management. She was resumed on all of her home medications. The patient was stable immediately postop and was deemed stable for discharge to either home or rehab at that point. After being seen by physical therapy the following day she was a candidate for fpc or rehab placement. Unfortunately due to ongoing delays by insurance, the patient remained in house until today. Insurance had required additional visits by physical therapy which she has obtained every day since postoperative day #1. She has remained stable over the course of her stay without any acute change. Pain was controlled on minimal pain medication. She reported being comfortable throughout her stay. We reviewed microbiology from both surgical sites that revealed no infection. She will be discharged for wound management at either her fpc facility or subsequently at [facility] until the wound has healed. The patient was deemed stable for discharge on 10/04/2020 and after discussing the case with case management they are hopeful that she will be able to leave today. - Additional Information Resuscitation Status: Full Code Discharge Diet: As Tolerated Discharge Activity: Activity As Tolerated, Keep Legs Elevated, No tub bath, Walk Frequently Referrals: KIM CLARK MD [Primary Care Provider] - 10/09/20 11:15 am Home Medications: Enalapril Maleate 10 mg PO DAILY 07/12/12 Pravastatin Sodium 40 mg PO DAILY 07/12/12 Ergocalciferol (Vitamin D2) [Vitamin D2] 1,250 mcg PO 09/27/20 Metoclopramide HCl [Reglan] 10 mg PO QID 09/27/20 Pantoprazole Sodium 40 mg PO BID 09/27/20 Acetaminophen 500 mg PO PRN PRN 09/30/20 History of Present Illiness History of Present Illness: DOLORES MERCHANT is a 85 year old female Physical Exam Vital Signs: Temp Pulse Resp BP Pulse Ox 98.3 F 97 18 136/79 H 96 10/04/20 11:14 10/04/20 11:14 10/04/20 11:14 10/04/20 11:14 10/04/20 11:14 Intake & Output 10/03/20 10/04/20 10/05/20 06:59 06:59 06:59 Intake Total 340 440 Output Total 1 600 Balance 339 -160 Results Laboratory Results: WBC 5.7 10^3/uL (4.0-10.5) 09/30/20 12:50 RBC 4.60 10^6/uL (3.72-5.28) 09/30/20 12:50 Hgb 13.8 g/dL (12.0-15.5) 09/30/20 12:50 Hct 42.1 % (36.0-47.0) 09/30/20 12:50 MCV 91 fl (80-97) 09/30/20 12:50 MCH 30.0 pg (27.0-33.4) 09/30/20 12:50 MCHC 32.9 g/dL (32.0-36.0) 09/30/20 12:50 RDW 14.2 % (11.5-14.0) H 09/30/20 12:50 Plt Count 131 10^3/uL (150-450) L 09/30/20 12:50 Sodium 139.0 mmol/L (137-145) 09/30/20 12:50 Potassium 4.0 mmol/L (3.6-5.0) 09/30/20 12:50 Chloride 105 mmol/L (98-107) 09/30/20 12:50 Carbon Dioxide 31 mmol/L (22-30) H 09/30/20 12:50 Anion Gap 3 (5-19) L 09/30/20 12:50 BUN 12 mg/dL (7-20) 09/30/20 12:50 Creatinine 0.54 mg/dL (0.52-1.25) 09/30/20 12:50 Est GFR ( Amer) > 60 (>60) 09/30/20 12:50 Est GFR (MDRD) Non-Af > 60 (>60) 09/30/20 12:50 Glucose 95 mg/dL (75-110) 09/30/20 12:50 Calcium 9.4 mg/dL (8.4-10.2) 09/30/20 12:50 Influenza A (RT-PCR) NEGATIVE (NEGATIVE) 09/30/20 09:30 Influenza B (RT-PCR) NEGATIVE (NEGATIVE) 09/30/20 09:30 RSV (RT-PCR) NEGATIVE (NEGATIVE) 09/30/20 09:30 SARS-CoV-2 Rap RNA(RT-PCR) NEGATIVE (NEGATIVE) 09/30/20 09:30 Stroke Is this a Stroke Patient?: No Acute Heart Failure Is this a Heart Failure Patient?: No
[2020-10-04] MEDS: ATORVASTATIN CALCIUM 10 MG TABLET PO SCH (21:39)
[2020-10-05] MEDS: ACETAMINOPHEN 325 MG TABLET PO SCH ×4 (00:17→19:09)
[2020-10-05] MEDS: METOCLOPRAMIDE HCL 10 MG TABLET PO SCH ×4 (09:28→22:36)
[2020-10-05] MEDS: GABAPENTIN 100 MG CAPSULE PO SCH ×2 (09:28→22:36)
[2020-10-05] MEDS: ASPIRIN 325 MG TABLET PO SCH (09:28)
[2020-10-05] MEDS: ENALAPRIL MALEATE 10 MG TABLET PO SCH (09:28)
[2020-10-05] MEDS: CELECOXIB 200 MG CAPSULE PO SCH (09:29)
[2020-10-05] MEDS: POLYETHYLENE GLYCOL 3350 POWDER 17 GM/1 PACKET PO SCH (09:29)
--- NOTE | 2020-10-05 13:10 | PDOC PROGRESS REPORT ---
Subjective Date:: 10/05/20 Subjective:: Patient lying in bed comfortably. No issues overnight. States pain is controll ed. Denies fever or chills. Reason For Visit: RIGHT LOWER EXTREMITY HANLEY-LAVELLEE LESION Physical Exam Vital Signs: Temp Pulse Resp BP Pulse Ox 97.9 F 78 18 140/78 H 97 10/05/20 08:34 10/05/20 09:28 10/05/20 08:04 10/05/20 09:28 10/05/20 08:04 Intake & Output 10/04/20 10/05/20 10/06/20 06:59 06:59 06:59 Intake Total 440 650 Output Total 600 300 Balance -160 350 Musculoskeletal exam: PRESENT: other - Right lower extremity: Wound VAC intact with good seal no evidence of leak. Minimal thigh swelling. Compartment soft and compressible. Intact plantarflexion/dorsiflexion. No calf tenderness. Results Laboratory Results: 09/30/20 12:50 09/30/20 12:50 09/30/20 17:11 Thigh - Right Gram Stain - Final 09/30/20 17:11 Thigh - Right Wound Culture - Final NO AEROBIC OR ANAEROBIC ORGANISMS RECOVERED 09/30/20 16:21 Knee - Abscess Gram Stain - Final 09/30/20 16:21 Knee - Abscess Wound Culture - Final NO AEROBIC OR ANAEROBIC ORGANISMS RECOVERED Assessment & Plan - Diagnosis (1) Degloving injury Is this a current diagnosis for this admission?: Yes Plan: Patient doing well at this point. Stable for discharge pending insurance authorization. She will need twice weekly dressing changes and wound VAC changes to allow for bleeding from the Follow Dr. Mcallister 10 days postop Encourage out of bed, ambulate as tolerated, self motivated personal hygiene including using the restroom on her own. - Time Time Spent with patient: Less than 15 minutes
[2020-10-05] MEDS: ATORVASTATIN CALCIUM 10 MG TABLET PO SCH (22:35)
[2020-10-06] MEDS: ACETAMINOPHEN 325 MG TABLET PO SCH ×5 (00:26→23:33)
[2020-10-06] MEDS ORDERED: ONDANSETRON HCL INJ/PF 4 MG/2 ML SDV IV PRN (08:48)
--- NOTE | 2020-10-06 10:42 | RADIOLOGY REPORT (SQ) ---
EXAM DESCRIPTION: CHEST SINGLE VIEW IMAGES COMPLETED DATE/TIME: 10/06/2020 9:49 am REASON FOR STUDY: Aspiration COMPARISON: None. EXAM PARAMETERS: NUMBER OF VIEWS: One view. TECHNIQUE: Single frontal radiographic view of the chest acquired. RADIATION DOSE: NA LIMITATIONS: None. FINDINGS: LUNGS AND PLEURA: No opacities, masses or pneumothorax. No pleural effusion. MEDIASTINUM AND HILAR STRUCTURES: No masses. Contour normal. HEART AND VASCULAR STRUCTURES: Heart normal in size. Normal vasculature. BONES: No acute findings. HARDWARE: None in the chest. OTHER: No other significant finding. IMPRESSION: NO ACUTE RADIOGRAPHIC FINDING IN THE CHEST. TECHNICAL DOCUMENTATION: JOB ID: [id number] 2010 [employer]- All Rights Reserved Reading location - IP/workstation name: [email or web address]
[2020-10-06] MEDS: METOCLOPRAMIDE HCL 10 MG TABLET PO SCH ×4 (10:52→21:36)
[2020-10-06] MEDS: CELECOXIB 200 MG CAPSULE PO SCH (10:52)
[2020-10-06] MEDS: ASPIRIN 325 MG TABLET PO SCH (10:52)
[2020-10-06] MEDS: GABAPENTIN 100 MG CAPSULE PO SCH ×2 (10:52→21:35)
[2020-10-06] MEDS: ENALAPRIL MALEATE 10 MG TABLET PO SCH (10:53)
[2020-10-06] MEDS: POLYETHYLENE GLYCOL 3350 POWDER 17 GM/1 PACKET PO SCH (10:53)
--- NOTE | 2020-10-06 17:30 | PDOC PROGRESS REPORT ---
Subjective Subjective:: Patient lying in bed comfortably. Did have some nausea this morning and tripped on her breakfast otherwise she has been doing well. States pain is controlled. Denies fever or chills. Reason For Visit: RIGHT LOWER EXTREMITY HANLEY-LAVELLEE LESION Physical Exam Vital Signs: Temp Pulse Resp BP Pulse Ox 98.7 F 93 17 140/82 H 98 10/06/20 16:21 10/06/20 16:21 10/06/20 16:21 10/06/20 16:21 10/06/20 16:21 Intake & Output 10/05/20 10/06/20 10/07/20 06:59 06:59 06:59 Intake Total 650 440 Output Total 300 Balance 350 440 Musculoskeletal exam: PRESENT: other - Right lower extremity: Wound VAC intact with good seal, no erythema or drainage. Mild thigh swelling without change, intact plantarflexion/dorsiflexion. No sensory deficits. No calf tenderness. Results Laboratory Results: 09/30/20 12:50 09/30/20 12:50 Impressions: Chest X-Ray 10/06/20 00:00 IMPRESSION: NO ACUTE RADIOGRAPHIC FINDING IN THE CHEST. Assessment & Plan - Diagnosis (1) Degloving injury Is this a current diagnosis for this admission?: Yes Plan: Patient doing well at this point. Stable for discharge pending insurance authorization. She will need twice weekly dressing changes and wound VAC changes to allow for bleeding from the Follow Dr. Mcallister 10 days postop Chest x-ray demonstrate no evidence of infiltrate. Patient is doing well with episode. Denies chest pain or shortness of breath continue to monitor - Time Time Spent with patient: Less than 15 minutes
[2020-10-06] MEDS: ATORVASTATIN CALCIUM 10 MG TABLET PO SCH (21:35)
[2020-10-07] MEDS: ACETAMINOPHEN 325 MG TABLET PO SCH ×2 (06:12→11:33)
[2020-10-07] MEDS: METOCLOPRAMIDE HCL 10 MG TABLET PO SCH (09:10)
[2020-10-07] MEDS: POLYETHYLENE GLYCOL 3350 POWDER 17 GM/1 PACKET PO SCH (09:10)
[2020-10-07] MEDS: ENALAPRIL MALEATE 10 MG TABLET PO SCH (09:10)
[2020-10-07] MEDS: ASPIRIN 325 MG TABLET PO SCH (09:10)
[2020-10-07] MEDS: CELECOXIB 200 MG CAPSULE PO SCH (09:10)
[2020-10-07] MEDS: GABAPENTIN 100 MG CAPSULE PO SCH (09:10)
--- NOTE | 2020-10-07 11:11 | PDOC TRANSFER SUMMARY ---
Impression - Admit/DC Date/PCP Admission Date/Primary Care Provider: 09/30/20 18:13 KIM CLARK MD Discharge Date: 10/07/20 - Discharge Diagnosis (1) Degloving injury Is this a current diagnosis for this admission?: Yes - Assessment Summary: Patient sustained a degloving injury approximately 5 weeks ago that resulted in seromas on her hip and inner thigh that did not resolve. Due to ongoing pressure and pain, the patient sought further management. I saw her in the office and after discussing risks benefits with her and her brother she provided informed operative consent for incision and drainage of both [place]ie lesions with wound VAC application. Patient underwent surgery on 09/30/2020 and tolerated procedure well and was transferred to the PACU in stable condition. She was then transferred to the floor for postoperative management. She was resumed on all of her home medications. The patient was stable immediately postop and was deemed stable for discharge to either home or rehab at that point. After being seen by physical therapy the following day she was a candidate for shelter or rehab placement. Unfortunately due to ongoing delays by insurance, the patient remained in house until today. Insurance had required additional visits by physical therapy which she has obtained every day since postoperative day #1. She has remained stable over the course of her stay without any acute change. Pain was controlled on minimal pain medication. She reported being comfortable throughout her stay. We reviewed microbiology from both surgical sites that revealed no infection. She will be discharged for wound management at either her shelter facility or subsequently at [facility] until the wound has healed. The patient was deemed stable for discharge on 10/04/2020 and after discussing the case with case management they are hopeful that she will be able to leave today 10/07/2020 - Additional Information Resuscitation Status: Full Code Discharge Diet: As Tolerated Discharge Activity: Activity As Tolerated, Keep Legs Elevated, No tub bath, Walk Frequently Referrals: KIM CLARK MD [Primary Care Provider] - 10/09/20 11:15 am Home Medications: Enalapril Maleate 10 mg PO DAILY 07/12/12 Pravastatin Sodium 40 mg PO DAILY 07/12/12 Ergocalciferol (Vitamin D2) [Vitamin D2] 1,250 mcg PO 09/27/20 Metoclopramide HCl [Reglan] 10 mg PO QID 09/27/20 Pantoprazole Sodium 40 mg PO BID 09/27/20 Acetaminophen 500 mg PO PRN PRN 09/30/20 History of Present Illiness History of Present Illness: DOLORES MERCHANT is a 85 year old female Hospital Course Hospital Course: Patient sustained a degloving injury approximately 5 weeks ago that resulted in seromas on her hip and inner thigh that did not resolve. Due to ongoing pressure and pain, the patient sought further management. I saw her in the office and after discussing risks benefits with her and her brother she provided informed operative consent for incision and drainage of both [place] lesions with wound VAC application. Patient underwent surgery on 09/30/2020 and tolerated procedure well and was t ransferred to the PACU in stable condition. She was then transferred to the floor for postoperative management. She was resumed on all of her home medications. The patient was stable immediately postop and was deemed stable for discharge to either home or rehab at that point. After being seen by physical therapy the following day she was a candidate for shelter or rehab placement. Unfortunately due to ongoing delays by insurance, the patient remained in house until today. Insurance had required additional visits by physical therapy which she has obtained every day since postoperative day #1. She has remained stable over the course of her stay without any acute change. Pain was controlled on minimal pain medication. She reported being comfortable throughout her stay. We reviewed microbiology from both surgical sites that revealed no infection. She will be discharged for wound management at either her shelter facility or subsequently at [facility] until the wound has healed. The patient was deemed stable for discharge on 10/04/2020 and after discussing the case with case management they are hopeful that she will be able to leave today 10/07/2020 Physical Exam Vital Signs: Temp Pulse Resp BP Pulse Ox 97.8 F 78 22 H 129/70 H 96 10/07/20 10:00 10/07/20 10:00 10/07/20 10:00 10/07/20 10:00 10/07/20 10:00 Intake & Output 10/06/20 10/07/20 10/08/20 06:59 06:59 06:59 Intake Total 540 Balance 540 General appearance: PRESENT: no acute distress, well-developed, well-nourished Head exam: PRESENT: atraumatic, normocephalic Eye exam: PRESENT: conjunctiva pink, EOMI, PERRLA. ABSENT: scleral icterus Ear exam: PRESENT: normal external ear exam Mouth exam: PRESENT: moist, tongue midline Neck exam: ABSENT: carotid bruit, JVD, lymphadenopathy, thyromegaly Respiratory exam: PRESENT: clear to auscultation jonatan. ABSENT: rales, rhonchi, wheezes Cardiovascular exam: PRESENT: RRR. ABSENT: diastolic murmur, rubs, systolic murmur Pulses: PRESENT: normal dorsalis pedis pul Vascular exam: PRESENT: normal capillary refill GI/Abdominal exam: PRESENT: normal bowel sounds, soft. ABSENT: distended, guarding, mass, organolmegaly, rebound, tenderness Rectal exam: PRESENT: deferred Extremities exam: PRESENT: full ROM. ABSENT: calf tenderness, clubbing, pedal edema Musculoskeletal exam: PRESENT: other - Right LE: Vac dressing intact. minimal thigh swelling. No erythema/drainage. Neurological exam: PRESENT: alert, awake, oriented to person, oriented to place, oriented to time, oriented to situation, CN II-XII grossly intact. ABSENT: motor sensory deficit Psychiatric exam: PRESENT: appropriate affect, normal mood. ABSENT: homicidal ideation, suicidal ideation Skin exam: PRESENT: dry, intact, warm. ABSENT: cyanosis, rash Results Laboratory Results: WBC 5.7 10^3/uL (4.0-10.5) 09/30/20 12:50 RBC 4.60 10^6/uL (3.72-5.28) 09/30/20 12:50 Hgb 13.8 g/dL (12.0-15.5) 09/30/20 12:50 Hct 42.1 % (36.0-47.0) 09/30/20 12:50 MCV 91 fl (80-97) 09/30/20 12:50 MCH 30.0 pg (27.0-33.4) 09/30/20 12:50 MCHC 32.9 g/dL (32.0-36.0) 09/30/20 12:50 RDW 14.2 % (11.5-14.0) H 09/30/20 12:50 Plt Count 131 10^3/uL (150-450) L 09/30/20 12:50 Sodium 139.0 mmol/L (137-145) 09/30/20 12:50 Potassium 4.0 mmol/L (3.6-5.0) 09/30/20 12:50 Chloride 105 mmol/L (98-107) 09/30/20 12:50 Carbon Dioxide 31 mmol/L (22-30) H 09/30/20 12:50 Anion Gap 3 (5-19) L 09/30/20 12:50 BUN 12 mg/dL (7-20) 09/30/20 12:50 Creatinine 0.54 mg/dL (0.52-1.25) 09/30/20 12:50 Est GFR ( Amer) > 60 (>60) 09/30/20 12:50 Est GFR (MDRD) Non-Af > 60 (>60) 09/30/20 12:50 Glucose 95 mg/dL (75-110) 09/30/20 12:50 Calcium 9.4 mg/dL (8.4-10.2) 09/30/20 12:50 Influenza A (RT-PCR) NEGATIVE (NEGATIVE) 09/30/20 09:30 Influenza B (RT-PCR) NEGATIVE (NEGATIVE) 09/30/20 09:30 RSV (RT-PCR) NEGATIVE (NEGATIVE) 09/30/20 09:30 SARS-CoV-2 Rap RNA(RT-PCR) NEGATIVE (NEGATIVE) 09/30/20 09:30 Impressions: Chest X-Ray 10/06/20 00:00 IMPRESSION: NO ACUTE RADIOGRAPHIC FINDING IN THE CHEST. Plan Plan of Treatment: Continue Vac changes twice weekly FU Dr. Mcallister 10days Time Spent: Less than 30 Minutes Stroke Is this a Stroke Patient?: No Acute Heart Failure Is this a Heart Failure Patient?: No
[2020-10-07 12:23] VITALS: BP 122/75
== END 2020-10-07 13:30 ==
LOC: OROUT 09:09 → EDSTATUS 12:00 → 5 18:13
PROVIDERS: ADMIT Orthopaedic Surgery; ATTEND Orthopaedic Surgery
DX: S70.11XA Contusion of right thigh, initial encounter (principal); S70.01XA Contusion of right hip, initial encounter; V89.2XXA Person injured in unspecified motor-vehicle accident, traffic, initial encounter; E78.00 Pure hypercholesterolemia, unspecified; I10 Essential (primary) hypertension; Z20.828 Contact with and (suspected) exposure to other viral communicable diseases
CPT/HCPCS: 01250; 36415; 71045; 80048; 85027; 87070; 87075; 87205; 93005; 93010; 99281; 0241U; C9803; G0378; J0690; J1885; J2250; J2405; J2704; J3010; J3490; J7060